=== PATIENT | female | born 1970 | race Two or more races ===

== ENCOUNTER 2022-10-16 19:33 | Inpatient (IN) | payer MEDICAID ==
[~2022-10-16] VITALS: Ht 149.9 cm; Wt 59.1 kg
[2022-10-16 20:45] LABS: COVID19 ANTIGEN SOFIA FIA NEGATIVE (NEGATIVE)
[2022-10-16 20:46] LABS: Rapid Influenza A Negative (Negative); Rapid Influenza B Negative (Negative)
[2022-10-16 22:56] LABS: Basophils # (auto) 0 10 ^3/uL (0-0.2); Basophils % (auto) 0.4 % (0.0-2.0); Eosinophils # (auto) 0.1 10 ^3/uL (0-0.8); Eosinophils % (auto) 0.8 % (0.0-7.0); Hematocrit 29.6 % (36.0-46.0); Hemoglobin 9.8 g/dL (12.2-16.2); Lymphocytes # (auto) 0.7 10 ^3/uL (0.4-5.4); Lymphocytes % (auto) 9.7 % (10.0-50.0); Mean Corpuscular Hgb Conc. 33.3 g/dL (32.0-36.0); Monocytes # (auto) 0.2 10 ^3/uL (0-1.3); Neutrophils # (auto) 6.2 10 ^3/uL (1.6-8.6); Neutrophils % (auto) 86.1 % (37.0-80.0); Nucleated Red Blood Cells % 0.1 %; Red Blood Cells 3.52 10^6/uL (4.0-5.20); Red Cell Distribution Width 14.7 % (11.8-14.3); White Blood Cell 7.1 10^3/uL (4.4-10.8)
[2022-10-16 23:15] LABS: BUN/Creatinine Ratio 18.8 (10.0-20.0); Calcium 8.8 mg/dL (8.5-10.1); Potassium 4.8 mmol/L (3.5-5.1)
[2022-10-16 23:18] LABS: Bilirubin, Total 0.6 mg/dL (0.2-1.0); Total Protein 8.3 g/dL (6.4-8.2)
[2022-10-17 01:22] LABS: Urine Bacteria MANY /hpf (None Seen); Urine Blood Negative /uL (Negative); Urine Clarity HAZY (Clear); Urine Color Yellow (Yellow); Urine Hyaline Cast FEW /lpf (0 - 2); Urine Protein, UAD 1+ (Negative); Urine Urobilinogen Normal (Negative); Urine WBC 6 /hpf (0 - 5); Urine pH 5.5 (5.0-8.0)
[2022-10-17] MEDS ORDERED: FAMOTIDINE (10MG/ML) 2ML VL IV ONE (02:00)
[2022-10-17] MEDS ORDERED: SODIUM CHLORIDE 0.9% 1,000 ML IV ONE ×2 (02:00→14:45)
[2022-10-17] MEDS ORDERED: ONDANSETRON HCL 4 MG/2 ML VIAL IV ONE (02:00)
[2022-10-17] MEDS ORDERED: HYDROcodone-ACET 5/325MG TAB PO PRN (06:45)
[2022-10-17] MEDS ORDERED: NITROGLYCERIN 0.4 MG SL TAB SL PRN (06:45)
[2022-10-17] MEDS ORDERED: ACETAMINOPHEN 325 MG TAB PO PRN (06:45)
[2022-10-17] MEDS ORDERED: DOCUSATE SOD 100 MG CAP PO PRN (06:45)
[2022-10-17] MEDS ORDERED: DEXTROSE (50%) 50ML SYRG IV PRN (06:45)
[2022-10-17] MEDS ORDERED: SODIUM CHLORIDE 0.9% 1,000 ML IV SCH (06:45)
[2022-10-17] MEDS ORDERED: ONDANSETRON HCL 4 MG/2 ML VIAL IV PRN (06:45)
[2022-10-17] MEDS ORDERED: MORPHINE SULFATE INJ 2 MG/ml SYRG IV PRN (06:45)
[2022-10-17 07:41] LABS: Basophils # (auto) 0 10 ^3/uL (0-0.2); Basophils % (auto) 0.4 % (0.0-2.0); Eosinophils # (auto) 0 10 ^3/uL (0-0.8); Eosinophils % (auto) 0.6 % (0.0-7.0); Hematocrit 27.5 % (36.0-46.0); Hemoglobin 9.1 g/dL (12.2-16.2); Mean Corpuscular Hemoglobin 27.8 pg (28.0-32.0); Mean Corpuscular Hgb Conc. 33.1 g/dL (32.0-36.0); Mean Corpuscular Volume 84.1 fL (80.0-100.0); Monocytes # (auto) 0.6 10 ^3/uL (0-1.3); Monocytes % (auto) 7.7 % (0.0-12.0); Neutrophils % (auto) 78.3 % (37.0-80.0); Nucleated Red Blood Cells % 0.1 %; Red Blood Cells 3.26 10^6/uL (4.0-5.20); Red Cell Distribution Width 14.4 % (11.8-14.3); White Blood Cell 7.6 10^3/uL (4.4-10.8)
[2022-10-17 07:53] LABS: Calcium 8.2 mg/dL (8.5-10.1); Potassium 4.3 mmol/L (3.5-5.1)
[2022-10-17 07:59] LABS: Albumin 2.5 g/dL (3.4-5.0); BUN/Creatinine Ratio 19.1 (10.0-20.0); Bilirubin, Total 0.6 mg/dL (0.2-1.0); Total Protein 7.5 g/dL (6.4-8.2)
[2022-10-17 09:00] VITALS: RESP 16; O2SAT 100
[2022-10-17] MEDS: FAMOTIDINE (10MG/ML) 2ML VL IV SCH ×2 (11:07→23:01)
[2022-10-17 11:30] LABS: INR 1.04 (0.9-1.15); Partial Thromboplastin Time 32.9 SEC (24.5-34.5); Prothrombin Time 10.9 sec (9.3-11.8)
[2022-10-17] MEDS: InsuLIN REG 1unit/0.01ml Soln (100units/ml) SC SCH ×2 (12:00→18:25)
[2022-10-17] MEDS: ACCU-CHEK COMFORT CURVE STRIP VI SCH ×2 (12:23→18:23)
[2022-10-17] MEDS: metroNIDAZOLE 500MG/100ML 100 ML IV SCH ×2 (15:21→23:01)
[2022-10-17] MEDS: SODIUM CHLORIDE 0.9% 1,000 ML IV SCH ×2 (15:22→23:02)
[2022-10-17] MEDS: cefTRIAXone 1GM/50ML D5W 50 ML IV SCH (15:22)
[2022-10-17 18:05] VITALS: RESP 18; O2SAT 98
[2022-10-17 20:00] VITALS: PULSE 79; RESP 17; O2SAT 96
[2022-10-17 22:00] VITALS: BP 111/58; PULSE 79; RESP 17; TEMP 98.2; O2SAT 96
[2022-10-17] MEDS: MORPHINE SULFATE INJ 2 MG/ml SYRG IV PRN (23:45)
[2022-10-18] VITALS (7 sets, daily range): BP systolic 109–141; BP diastolic 52–80; PULSE 80–112; RESP 16–19; TEMP 97.1–100.6; O2SAT 93–100
[2022-10-18] MEDS: ACCU-CHEK COMFORT CURVE STRIP VI SCH ×4 (00:17→17:37)
[2022-10-18] MEDS: metroNIDAZOLE 500MG/100ML 100 ML IV SCH ×4 (00:18→21:21)
[2022-10-18] MEDS: InsuLIN REG 1unit/0.01ml Soln (100units/ml) SC SCH ×4 (06:00→18:36)
[2022-10-18] MEDS ORDERED: ceFAZolin 1GM/50ML 100 ML IV ONE (06:48)
[2022-10-18 07:53] LABS: Basophils # (auto) 0 10 ^3/uL (0-0.2); Basophils % (auto) 0.3 % (0.0-2.0); Eosinophils # (auto) 0 10 ^3/uL (0-0.8); Eosinophils % (auto) 0.4 % (0.0-7.0); Hematocrit 27.8 % (36.0-46.0); Hemoglobin 9.1 g/dL (12.2-16.2); Lymphocytes # (auto) 1.2 10 ^3/uL (0.4-5.4); Mean Corpuscular Hemoglobin 27.9 pg (28.0-32.0); Mean Corpuscular Hgb Conc. 32.8 g/dL (32.0-36.0); Mean Corpuscular Volume 84.9 fL (80.0-100.0); Monocytes # (auto) 0.3 10 ^3/uL (0-1.3); Monocytes % (auto) 3.2 % (0.0-12.0); Neutrophils # (auto) 8.3 10 ^3/uL (1.6-8.6); Neutrophils % (auto) 84.1 % (37.0-80.0); Red Blood Cells 3.27 10^6/uL (4.0-5.20); Red Cell Distribution Width 14.2 % (11.8-14.3); White Blood Cell 9.9 10^3/uL (4.4-10.8)
[2022-10-18] MEDS ORDERED: MIDAZOLAM HCL 2MG/2ML 2ml VIAL (1mg/ml) ONE (08:00)
[2022-10-18] MEDS ORDERED: fentaNYL CITRATE 100 MCG/2 ML VL ONE (08:00)
[2022-10-18] MEDS ORDERED: MEPERIDINE HCL (25 MG/ML) 1ML VIAL ONE (08:01)
[2022-10-18] MEDS ORDERED: BUPIVACAINE W/ EPINEPH 0.5% INJ 50ML MDV IJ ONE (08:14)
[2022-10-18] MEDS ORDERED: LIDOCAINE 1% HCL (LOCAL ANESTH.) INJ 20ML MDV ONE (08:15)
[2022-10-18 08:17] LABS: Potassium 3.9 mmol/L (3.5-5.1)
[2022-10-18 08:25] LABS: Albumin 2.7 g/dL (3.4-5.0); BUN/Creatinine Ratio 15.3 (10.0-20.0); Bilirubin, Total 0.7 mg/dL (0.2-1.0); Calcium 8.4 mg/dL (8.5-10.1); Total Protein 7.8 g/dL (6.4-8.2)
[2022-10-18] MEDS ORDERED: PROPOFOL 10 MG/ML 20 ML IV ONE (08:53)
[2022-10-18] MEDS ORDERED: ONDANSETRON HCL 4 MG/2 ML VIAL ONE (08:53)
[2022-10-18] MEDS ORDERED: DexAMETHasone SOD PHOS 10MG/1ML VIAL INJ ONE (08:53)
[2022-10-18] MEDS ORDERED: hydrALAZINE HCL 20 MG/ML VL IV PRN (09:00)
[2022-10-18] MEDS ORDERED: LABETALOL HCL 5 MG/ML 4ML SYRINGE IV PRN (09:00)
[2022-10-18] MEDS ORDERED: MORPHINE SULFATE 4 MG/ML SYR/VIAL IV PRN (09:00)
[2022-10-18] MEDS ORDERED: MIDAZOLAM HCL 2MG/2ML 2ml VIAL (1mg/ml) IV PRN (09:00)
[2022-10-18] MEDS ORDERED: HYDROmorphone HCL 2 MG/ML VL/or syr IV PRN (09:00)
[2022-10-18] MEDS ORDERED: ONDANSETRON HCL 4 MG/2 ML VIAL IV PRN (09:00)
[2022-10-18] MEDS ORDERED: ePHEDrine SULFATE 50 MG/ML AMP IV PRN (09:00)
[2022-10-18] MEDS ORDERED: SUGAMMADEX 200mg/2ml Vial (100MG/ML) IV ONE (09:24)
[2022-10-18] MEDS ORDERED: LIDOCAINE HCL 1%(LOCAL ANESTH.) INJ 50ML MDV IJ ONE (09:40)
[2022-10-18] MEDS: FAMOTIDINE (10MG/ML) 2ML VL IV SCH ×2 (09:43→21:21)
[2022-10-18] MEDS: SODIUM CHLORIDE 0.9% 1,000 ML IV SCH ×2 (11:04→19:00)
[2022-10-18] MEDS: cefTRIAXone 1GM/50ML D5W 50 ML IV SCH (11:04)
[2022-10-18] MEDS ORDERED: METR-344 PO (11:40)
[2022-10-18 11:43] LABS: Hematocrit 27.1 % (36.0-46.0); Hemoglobin 8.8 g/dL (12.2-16.2); Mean Corpuscular Hemoglobin 27.9 pg (28.0-32.0); Mean Corpuscular Hgb Conc. 32.6 g/dL (32.0-36.0); Mean Corpuscular Volume 85.7 fL (80.0-100.0); Red Blood Cells 3.16 10^6/uL (4.0-5.20); Red Cell Distribution Width 14.9 % (11.8-14.3); White Blood Cell 10.7 10^3/uL (4.4-10.8)
[2022-10-18 12:04] LABS: Basophils % (manual) 0 (0.0-2.0); Blast Cells 0; Eosinophils % (manual) 0 (0-7); Metamyelocytes % 0; Myelocytes % 0; Promyelocytes % 0; Reactive Lymphocytes 0
[2022-10-18 16:14] LABS: Anisocytosis Slight; Band Neutrophils % (manual) 8; Lymphocytes % (manual) 4 (10.0-50.0); Monocytes % (manual) 3 (0-12); Platelet Estimate Adequate
[2022-10-18] MEDS ORDERED: ROCURONIUM 10MG/ML 10ML VIAL IV ONE (17:21)
[2022-10-18] MEDS: MORPHINE SULFATE INJ 2 MG/ml SYRG IV PRN (21:21)
[2022-10-19] MEDS: ACCU-CHEK COMFORT CURVE STRIP VI SCH ×3 (00:02→12:26)
[2022-10-19] MEDS: InsuLIN REG 1unit/0.01ml Soln (100units/ml) SC SCH ×3 (00:04→12:00)
[2022-10-19] MEDS ORDERED: TEMAZEPAM 15 MG CAP PO PRN ×2 (00:15→01:45)
[2022-10-19 05:00] VITALS: BP 137/74; PULSE 90; RESP 16; TEMP 97.7; O2SAT 98
[2022-10-19] MEDS: SODIUM CHLORIDE 0.9% 1,000 ML IV SCH ×2 (06:27→07:27)
[2022-10-19] MEDS: metroNIDAZOLE 500MG/100ML 100 ML IV SCH ×2 (06:27→14:56)
[2022-10-19 07:09] LABS: Basophils # (auto) 0 10 ^3/uL (0-0.2); Eosinophils # (auto) 0 10 ^3/uL (0-0.8); Lymphocytes # (auto) 1.1 10 ^3/uL (0.4-5.4); Red Cell Distribution Width 14.7 % (11.8-14.3); White Blood Cell 13.1 10^3/uL (4.4-10.8)
[2022-10-19 07:12] LABS: Hemoglobin 8.9 g/dL (12.2-16.2); Lymphocytes % (auto) 8.4 % (10.0-50.0); Mean Corpuscular Hemoglobin 27.3 pg (28.0-32.0); Mean Corpuscular Hgb Conc. 32.8 g/dL (32.0-36.0); Monocytes # (auto) 0.8 10 ^3/uL (0-1.3); Monocytes % (auto) 6.2 % (0.0-12.0); Neutrophils # (auto) 11.2 10 ^3/uL (1.6-8.6); Neutrophils % (auto) 85.4 % (37.0-80.0); Red Blood Cells 3.25 10^6/uL (4.0-5.20)
[2022-10-19 07:22] LABS: Calcium 8.6 mg/dL (8.5-10.1); Potassium 4.2 mmol/L (3.5-5.1)
[2022-10-19 07:27] LABS: BUN/Creatinine Ratio 21.5 (10.0-20.0); Bilirubin, Total 0.7 mg/dL (0.2-1.0)
[2022-10-19 08:30] VITALS: O2SAT 97
[2022-10-19 09:00] VITALS: BP 131/76; PULSE 80; RESP 16; TEMP 98; O2SAT 98
[2022-10-19] MEDS: FAMOTIDINE (10MG/ML) 2ML VL IV SCH (10:53)
[2022-10-19] MEDS: cefTRIAXone 1GM/50ML D5W 50 ML IV SCH (10:53)
[2022-10-19 13:00] VITALS: BP 114/70; PULSE 81; RESP 14; TEMP 98.1; O2SAT 100
== END 2022-10-19 17:22 | disposition home or self-care (01) | DRG 263 ==
LOC: ER 19:33 → OVERFLOW 10-17 06:41 → WEST WING 10-17 17:28
PROVIDERS: ADMIT Internal Medicine Pulmonary Disease; ATTEND Internal Medicine
PROC: 0FT44ZZ Resection of Gallbladder, Percutaneous Endoscopic Approach (ICD-10-PCS; principal; 2022-10-18 08:20)
DX: K80.00 Calculus of gallbladder with acute cholecystitis without obstruction (principal); E44.1 Mild protein-calorie malnutrition; D64.9 Anemia, unspecified; E11.65 Type 2 diabetes mellitus with hyperglycemia; I10 Essential (primary) hypertension; Z20.822 Contact with and (suspected) exposure to COVID-19; Z68.26 Body mass index [BMI] 26.0-26.9, adult
CPT/HCPCS: 36415; 71045; 74176; 76705; 80048; 80053; 81001; 81025; 82247; 82962; 83036; 85007; 85025; 85027; 85610; 85730; 86850; 86900; 86901; 87070; 87075; 87077; 87186; 87205; 87426; 87804; 93306; 96361; 96374; 96375; G0378; J0690; J0696; J1100; J1815; J2001; J2250; J2405; J2704; J3490

== ENCOUNTER 2022-10-20 14:57 | Inpatient (IN) | payer MEDICAID ==
[~2022-10-20] VITALS: Ht 149.9 cm; Wt 57.4 kg
[~2022-10-20 14:57] MED LIST: METR-344 PO
[2022-10-20 15:45] LABS: Basophils # (auto) 0.1 10 ^3/uL (0-0.2); Basophils % (auto) 0.5 % (0.0-2.0); Eosinophils # (auto) 0 10 ^3/uL (0-0.8); Eosinophils % (auto) 0.1 % (0.0-7.0); Hemoglobin 10.1 g/dL (12.2-16.2); Lymphocytes # (auto) 1.8 10 ^3/uL (0.4-5.4); Lymphocytes % (auto) 15.4 % (10.0-50.0); Mean Corpuscular Hemoglobin 27.1 pg (28.0-32.0); Mean Corpuscular Hgb Conc. 32.4 g/dL (32.0-36.0); Mean Corpuscular Volume 83.6 fL (80.0-100.0); Monocytes # (auto) 0.8 10 ^3/uL (0-1.3); Monocytes % (auto) 7.3 % (0.0-12.0); Neutrophils # (auto) 8.8 10 ^3/uL (1.6-8.6); Neutrophils % (auto) 76.7 % (37.0-80.0); Nucleated Red Blood Cells % 0.1 %; Red Blood Cells 3.71 10^6/uL (4.0-5.20); Red Cell Distribution Width 14.9 % (11.8-14.3); White Blood Cell 11.5 10^3/uL (4.4-10.8)
[2022-10-20] MEDS ORDERED: IOHEXOL 300 MG/ML 100ML BOTTLE IJ ONE (15:51)
[2022-10-20 15:54] LABS: Urine Bacteria NONE SEEN /hpf (None Seen); Urine Blood Negative /uL (Negative); Urine Clarity Clear (Clear); Urine Color Yellow (Yellow); Urine Hyaline Cast FEW /lpf (0 - 2); Urine Protein, UAD 1+ (Negative); Urine Specific Gravity 1.018 (1.001-1.035); Urine Urobilinogen Normal (Negative); Urine WBC 2 /hpf (0 - 5); Urine pH 5.5 (5.0-8.0)
[2022-10-20] MEDS ORDERED: ONDANSETRON HCL 4 MG/2 ML VIAL IV ONE (16:00)
[2022-10-20] MEDS ORDERED: SODIUM CHLORIDE 0.9% 1,000 ML IVB ONE (16:00)
[2022-10-20 16:05] LABS: Albumin 2.7 g/dL (3.4-5.0); Calcium 8.5 mg/dL (8.5-10.1); Potassium 3.2 mmol/L (3.5-5.1)
[2022-10-20 16:22] LABS: BUN/Creatinine Ratio 20.5 (10.0-20.0); Bilirubin, Total 0.4 mg/dL (0.2-1.0); Total Protein 7.8 g/dL (6.4-8.2)
[2022-10-20 16:40] LABS: Magnesium 1.9 mg/dL (1.6-2.6)
[2022-10-20] MEDS ORDERED: DEXTROSE (50%) 50ML SYRG IV PRN (18:30)
[2022-10-20] MEDS ORDERED: ACETAMINOPHEN 325 MG TAB PO PRN (18:30)
[2022-10-20] MEDS ORDERED: DOCUSATE SOD 100 MG CAP PO PRN (18:30)
[2022-10-20] MEDS ORDERED: SODIUM CHLORIDE 0.9% 1,000 ML IV SCH (18:30)
[2022-10-20] MEDS ORDERED: MORPHINE SULFATE INJ 2 MG/ml SYRG IV PRN (18:30)
[2022-10-20] MEDS ORDERED: POTASSIUM EFFERVESENT TAB 25 MEQ PO ONE (19:00)
[2022-10-20] MEDS: SODIUM CHLORIDE 0.9% 1,000 ML IV SCH (19:39)
[2022-10-20] MEDS: InsuLIN REG 1unit/0.01ml Soln (100units/ml) SC SCH (22:00)
[2022-10-20] MEDS: metroNIDAZOLE 500MG/100ML 100 ML IV SCH (22:06)
[2022-10-20] MEDS: ACCU-CHEK COMFORT CURVE STRIP VI SCH (22:08)
[2022-10-20 22:10] VITALS: PULSE 91; RESP 17; O2SAT 97
[2022-10-20 23:52] VITALS: BP 142/79; PULSE 94; RESP 18; O2SAT 99
[2022-10-20 23:53] VITALS: BP 146/79; PULSE 99; RESP 18; TEMP 98.2; O2SAT 94
[2022-10-21] MEDS: HYDROcodone-ACET 5/325MG TAB PO PRN (00:14)
[2022-10-21] MEDS: CEFEPIME 1GM/ 50ML 50 ML IV SCH ×3 (00:15→22:30)
[2022-10-21] MEDS: SODIUM CHLORIDE 0.9% 1,000 ML IV SCH ×6 (00:16→16:04)
[2022-10-21] MEDS: ONDANSETRON HCL 4 MG/2 ML VIAL IV PRN ×2 (03:49→12:09)
[2022-10-21] MEDS: metroNIDAZOLE 500MG/100ML 100 ML IV SCH ×3 (05:21→21:10)
[2022-10-21] MEDS: ACCU-CHEK COMFORT CURVE STRIP VI SCH ×4 (06:03→21:11)
[2022-10-21] MEDS: InsuLIN REG 1unit/0.01ml Soln (100units/ml) SC SCH ×4 (06:03→21:11)
[2022-10-21 06:50] LABS: Albumin 2.4 g/dL (3.4-5.0); Calcium 7.9 mg/dL (8.5-10.1); Potassium 3.2 mmol/L (3.5-5.1)
[2022-10-21 06:56] LABS: BUN/Creatinine Ratio 23.6 (10.0-20.0); Bilirubin, Total 0.4 mg/dL (0.2-1.0); Total Protein 6.8 g/dL (6.4-8.2)
[2022-10-21 07:16] LABS: Basophils # (auto) 0 10 ^3/uL (0-0.2); Basophils % (auto) 0.2 % (0.0-2.0); Eosinophils # (auto) 0 10 ^3/uL (0-0.8); Eosinophils % (auto) 0.3 % (0.0-7.0); Hematocrit 27.6 % (36.0-46.0); Lymphocytes # (auto) 1.8 10 ^3/uL (0.4-5.4); Lymphocytes % (auto) 13.4 % (10.0-50.0); Mean Corpuscular Hemoglobin 27.4 pg (28.0-32.0); Mean Corpuscular Hgb Conc. 32.7 g/dL (32.0-36.0); Mean Corpuscular Volume 83.9 fL (80.0-100.0); Monocytes % (auto) 7.1 % (0.0-12.0); Neutrophils # (auto) 10.7 10 ^3/uL (1.6-8.6); Red Blood Cells 3.29 10^6/uL (4.0-5.20); Red Cell Distribution Width 14.8 % (11.8-14.3); White Blood Cell 13.6 10^3/uL (4.4-10.8)
[2022-10-21 07:30] VITALS: PULSE 80; RESP 18; O2SAT 97
[2022-10-21 09:26] VITALS: BP 111/64; PULSE 85; RESP 16; TEMP 97.6; O2SAT 98
[2022-10-21] MEDS ORDERED: POTASSIUM CHL 20MEQ/100ML 100 ML IV ONE (10:45)
[2022-10-21 13:38] VITALS: BP 141/83; PULSE 89; RESP 17; TEMP 98.7; O2SAT 98
[2022-10-21 16:37] VITALS: BP 141/78; PULSE 89; RESP 14; TEMP 98.1; O2SAT 100
[2022-10-21 20:00] VITALS: BP 127/68; PULSE 88; RESP 18; TEMP 98.5; O2SAT 97
[2022-10-21 22:00] VITALS: BP 127/68; PULSE 88; RESP 18; TEMP 98.5; O2SAT 97
[2022-10-22] VITALS (7 sets, daily range): BP systolic 108–140; BP diastolic 66–75; PULSE 85–92; RESP 17–18; TEMP 97.4–99.4; O2SAT 95–98
[2022-10-22] MEDS: ONDANSETRON HCL 4 MG/2 ML VIAL IV PRN ×3 (00:22→16:20)
[2022-10-22] MEDS: SODIUM CHLORIDE 0.9% 1,000 ML IV SCH ×5 (01:00→21:00)
[2022-10-22] MEDS: metroNIDAZOLE 500MG/100ML 100 ML IV SCH (05:05)
[2022-10-22 05:57] LABS: Basophils # (auto) 0 10 ^3/uL (0-0.2); Basophils % (auto) 0.2 % (0.0-2.0); Eosinophils # (auto) 0.1 10 ^3/uL (0-0.8); Eosinophils % (auto) 0.4 % (0.0-7.0); Hematocrit 27.8 % (36.0-46.0); Hemoglobin 9.2 g/dL (12.2-16.2); Lymphocytes # (auto) 1.7 10 ^3/uL (0.4-5.4); Lymphocytes % (auto) 10.7 % (10.0-50.0); Mean Corpuscular Hemoglobin 27.6 pg (28.0-32.0); Mean Corpuscular Hgb Conc. 32.9 g/dL (32.0-36.0); Mean Corpuscular Volume 83.9 fL (80.0-100.0); Monocytes # (auto) 0.9 10 ^3/uL (0-1.3); Monocytes % (auto) 5.6 % (0.0-12.0); Neutrophils # (auto) 12.9 10 ^3/uL (1.6-8.6); Neutrophils % (auto) 83.1 % (37.0-80.0); Red Blood Cells 3.32 10^6/uL (4.0-5.20); Red Cell Distribution Width 14.5 % (11.8-14.3); White Blood Cell 15.5 10^3/uL (4.4-10.8)
[2022-10-22] MEDS: ACCU-CHEK COMFORT CURVE STRIP VI SCH ×4 (06:08→21:15)
[2022-10-22 06:14] LABS: Albumin 2.5 g/dL (3.4-5.0); Calcium 7.9 mg/dL (8.5-10.1); Potassium 3.3 mmol/L (3.5-5.1)
[2022-10-22] MEDS: InsuLIN REG 1unit/0.01ml Soln (100units/ml) SC SCH ×4 (06:14→21:20)
[2022-10-22 06:19] LABS: BUN/Creatinine Ratio 17.7 (10.0-20.0); Bilirubin, Total 0.5 mg/dL (0.2-1.0); Total Protein 6.8 g/dL (6.4-8.2)
[2022-10-22] MEDS: CEFEPIME 1GM/ 50ML 50 ML IV SCH ×2 (09:46→21:15)
[2022-10-22] MEDS: metroNIDAZOLE 500 MG TAB PO SCH ×2 (11:46→18:41)
[2022-10-22] MEDS ORDERED: POTASSIUM CHL 20MEQ/100ML 100 ML IV ONE (15:45)
[2022-10-23] VITALS (7 sets, daily range): BP systolic 110–129; BP diastolic 63–79; PULSE 85–94; RESP 16–20; TEMP 36.5; O2SAT 96–98
[2022-10-23] MEDS: metroNIDAZOLE 500 MG TAB PO SCH ×3 (00:18→12:12)
[2022-10-23] MEDS: ONDANSETRON HCL 4 MG/2 ML VIAL IV PRN ×2 (00:22→05:26)
[2022-10-23] MEDS: SODIUM CHLORIDE 0.9% 1,000 ML IV SCH ×5 (02:00→22:03)
[2022-10-23] MEDS: ACCU-CHEK COMFORT CURVE STRIP VI SCH ×4 (06:02→22:02)
[2022-10-23] MEDS: InsuLIN REG 1unit/0.01ml Soln (100units/ml) SC SCH ×4 (06:03→22:00)
[2022-10-23 06:29] LABS: Albumin 2.6 g/dL (3.4-5.0); Calcium 8.4 mg/dL (8.5-10.1); Potassium 3.2 mmol/L (3.5-5.1)
[2022-10-23 06:35] LABS: BUN/Creatinine Ratio 21.1 (10.0-20.0); Bilirubin, Total 0.4 mg/dL (0.2-1.0); Total Protein 7.4 g/dL (6.4-8.2)
[2022-10-23 06:41] LABS: Basophils # (auto) 0 10 ^3/uL (0-0.2); Basophils % (auto) 0.1 % (0.0-2.0); Eosinophils # (auto) 0 10 ^3/uL (0-0.8); Eosinophils % (auto) 0.2 % (0.0-7.0); Lymphocytes # (auto) 1.6 10 ^3/uL (0.4-5.4); Monocytes # (auto) 0.8 10 ^3/uL (0-1.3)
[2022-10-23 06:45] LABS: Hematocrit 28.9 % (36.0-46.0); Hemoglobin 9.8 g/dL (12.2-16.2); Lymphocytes % (auto) 11.4 % (10.0-50.0); Mean Corpuscular Hgb Conc. 33.7 g/dL (32.0-36.0); Monocytes % (auto) 5.4 % (0.0-12.0); Neutrophils # (auto) 11.7 10 ^3/uL (1.6-8.6); Neutrophils % (auto) 82.9 % (37.0-80.0); Red Blood Cells 3.49 10^6/uL (4.0-5.20); Red Cell Distribution Width 14.6 % (11.8-14.3); White Blood Cell 14.1 10^3/uL (4.4-10.8)
[2022-10-23] MEDS ORDERED: MAALOX PLUS or MAALOX 30 ML PO PRN (07:45)
[2022-10-23] MEDS ORDERED: POTASSIUM EFFERVESENT TAB 25 MEQ PO ONE ×2 (09:00→09:15)
[2022-10-23] MEDS: CEFEPIME 1GM/ 50ML 50 ML IV SCH (09:41)
[2022-10-23] MEDS ORDERED: PANTOPRAZOLE 40 MG TAB PO ONE (10:15)
[2022-10-23] MEDS ORDERED: ZOLPIDEM TARTRATE 5 MG TAB PO PRN (10:15)
[2022-10-23] MEDS: METOCLOPRAMIDE HCL 5MG/ml INJ 2ml VIAL IV SCH ×2 (15:58→22:02)
[2022-10-23] MEDS: PIPERACILLIN-TAZOB 3.375GM 100 ML IV SCH ×2 (15:59→22:02)
[2022-10-23] MEDS: SUCRALFATE 1 GM/10 ML ORAL SUSP PO SCH ×2 (17:29→22:02)
[2022-10-23] MEDS: PANTOPRAZOLE 40 MG/10 ML VIAL INJ IV SCH (22:02)
[2022-10-24] VITALS (7 sets, daily range): BP systolic 107–133; BP diastolic 67–79; PULSE 83–90; RESP 14–18; TEMP 36.5; O2SAT 93–99
[2022-10-24] MEDS: SODIUM CHLORIDE 0.9% 1,000 ML IV SCH ×5 (03:05→22:46)
[2022-10-24] MEDS: HYDROcodone-ACET 5/325MG TAB PO PRN (03:13)
[2022-10-24] MEDS: ONDANSETRON HCL 4 MG/2 ML VIAL IV PRN (04:56)
[2022-10-24 05:57] LABS: Basophils # (auto) 0 10 ^3/uL (0-0.2); Hematocrit 31.2 % (36.0-46.0); Hemoglobin 10.4 g/dL (12.2-16.2); Lymphocytes # (auto) 1.7 10 ^3/uL (0.4-5.4); Nucleated Red Blood Cells % 0.1 %; Red Blood Cells 3.76 10^6/uL (4.0-5.20); Red Cell Distribution Width 14.2 % (11.8-14.3)
[2022-10-24 06:00] LABS: Basophils % (auto) 0.3 % (0.0-2.0); Eosinophils # (auto) 0.1 10 ^3/uL (0-0.8); Eosinophils % (auto) 0.6 % (0.0-7.0); Lymphocytes % (auto) 16.5 % (10.0-50.0); Mean Corpuscular Hemoglobin 27.6 pg (28.0-32.0); Mean Corpuscular Hgb Conc. 33.2 g/dL (32.0-36.0); Monocytes # (auto) 0.7 10 ^3/uL (0-1.3); Monocytes % (auto) 6.5 % (0.0-12.0); Neutrophils % (auto) 76.1 % (37.0-80.0); White Blood Cell 10.5 10^3/uL (4.4-10.8)
[2022-10-24] MEDS: METOCLOPRAMIDE HCL 5MG/ml INJ 2ml VIAL IV SCH ×3 (06:00→22:00)
[2022-10-24] MEDS: PIPERACILLIN-TAZOB 3.375GM 100 ML IV SCH ×3 (06:00→22:00)
[2022-10-24 06:37] LABS: Potassium 3.6 mmol/L (3.5-5.1)
[2022-10-24 06:49] LABS: Albumin 2.8 g/dL (3.4-5.0); BUN/Creatinine Ratio 14.9 (10.0-20.0); Bilirubin, Total 0.5 mg/dL (0.2-1.0); Calcium 8.2 mg/dL (8.5-10.1)
[2022-10-24] MEDS: InsuLIN REG 1unit/0.01ml Soln (100units/ml) SC SCH ×4 (07:00→22:00)
[2022-10-24] MEDS: ACCU-CHEK COMFORT CURVE STRIP VI SCH ×4 (07:23→22:00)
[2022-10-24] MEDS: SUCRALFATE 1 GM/10 ML ORAL SUSP PO SCH ×4 (07:23→22:00)
[2022-10-24] MEDS: PANTOPRAZOLE 40 MG/10 ML VIAL INJ IV SCH ×2 (10:00→22:00)
[2022-10-24] MEDS: PANTOPRAZOLE 40 MG TAB PO SCH (10:06)
[2022-10-25] MEDS: SODIUM CHLORIDE 0.9% 1,000 ML IV SCH (04:00)
[2022-10-25 05:00] VITALS: BP 144/80; PULSE 80; RESP 18; TEMP 98.5; O2SAT 98
[2022-10-25] MEDS: METOCLOPRAMIDE HCL 5MG/ml INJ 2ml VIAL IV SCH ×2 (06:32→13:40)
[2022-10-25] MEDS: SUCRALFATE 1 GM/10 ML ORAL SUSP PO SCH ×2 (06:32→11:18)
[2022-10-25] MEDS: ACCU-CHEK COMFORT CURVE STRIP VI SCH ×2 (06:32→11:18)
[2022-10-25] MEDS: PIPERACILLIN-TAZOB 3.375GM 100 ML IV SCH ×2 (06:32→13:40)
[2022-10-25] MEDS: InsuLIN REG 1unit/0.01ml Soln (100units/ml) SC SCH ×2 (06:39→12:06)
[2022-10-25 07:14] LABS: Basophils # (auto) 0.1 10 ^3/uL (0-0.2); Eosinophils # (auto) 0.1 10 ^3/uL (0-0.8); Eosinophils % (auto) 1.1 % (0.0-7.0); Lymphocytes # (auto) 1.7 10 ^3/uL (0.4-5.4); Neutrophils # (auto) 6.6 10 ^3/uL (1.6-8.6); White Blood Cell 9.1 10^3/uL (4.4-10.8)
[2022-10-25 07:16] LABS: Basophils % (auto) 0.9 % (0.0-2.0); Hematocrit 30.1 % (36.0-46.0); Hemoglobin 9.7 g/dL (12.2-16.2); Lymphocytes % (auto) 18.9 % (10.0-50.0); Mean Corpuscular Hemoglobin 27.3 pg (28.0-32.0); Mean Corpuscular Hgb Conc. 32.4 g/dL (32.0-36.0); Mean Corpuscular Volume 84.3 fL (80.0-100.0); Monocytes # (auto) 0.7 10 ^3/uL (0-1.3); Monocytes % (auto) 7.3 % (0.0-12.0); Neutrophils % (auto) 71.8 % (37.0-80.0); Red Blood Cells 3.56 10^6/uL (4.0-5.20); Red Cell Distribution Width 14.5 % (11.8-14.3)
[2022-10-25 07:21] LABS: Potassium 3.3 mmol/L (3.5-5.1)
[2022-10-25 07:30] LABS: Albumin 2.6 g/dL (3.4-5.0); BUN/Creatinine Ratio 7.4 (10.0-20.0); Bilirubin, Total 0.3 mg/dL (0.2-1.0); Calcium 8.2 mg/dL (8.5-10.1); Total Protein 7.2 g/dL (6.4-8.2)
[2022-10-25 08:00] VITALS: PULSE 83; RESP 20; TEMP 36.5; O2SAT 96
[2022-10-25] MEDS ORDERED: POTASSIUM EFFERVESENT TAB 25 MEQ PO ONE (08:45)
[2022-10-25] MEDS ORDERED: SODIUM CHLORIDE 0.9% 1,000 ML IV SCH (08:45)
[2022-10-25 09:02] VITALS: BP 104/60; PULSE 81; RESP 14; TEMP 97.9; O2SAT 96
[2022-10-25] MEDS ORDERED: PANT40TA2 PO (09:24)
[2022-10-25] MEDS ORDERED: ZOFR4T PO (09:24)
[2022-10-25] MEDS: PANTOPRAZOLE 40 MG TAB PO SCH (10:37)
[2022-10-25 13:00] VITALS: BP 156/85; PULSE 91; RESP 16; TEMP 98.2; O2SAT 99
[2022-10-25 16:41] VITALS: BP 100/62; PULSE 87; RESP 18; TEMP 98.3; O2SAT 98
[2022-10-25 17:00] VITALS: BP 99/62; PULSE 87; RESP 14; TEMP 98.3; O2SAT 98
== END 2022-10-25 18:00 | disposition home or self-care (01) | DRG 720 ==
LOC: ER 14:57 → OVERFLOW 18:40 → EAST 22:16
PROVIDERS: ADMIT Internal Medicine Pulmonary Disease; ATTEND Internal Medicine
DX: A41.9 Sepsis, unspecified organism (principal); N17.0 Acute kidney failure with tubular necrosis; K85.90 Acute pancreatitis without necrosis or infection, unspecified; E44.1 Mild protein-calorie malnutrition; D64.9 Anemia, unspecified; D72.829 Elevated white blood cell count, unspecified; E11.65 Type 2 diabetes mellitus with hyperglycemia; E86.0 Dehydration; N30.00 Acute cystitis without hematuria; E87.6 Hypokalemia; K21.9 Gastro-esophageal reflux disease without esophagitis; G47.00 Insomnia, unspecified; I10 Essential (primary) hypertension; Z90.49 Acquired absence of other specified parts of digestive tract; Z83.3 Family history of diabetes mellitus; Z87.442 Personal history of urinary calculi; Z68.25 Body mass index [BMI] 25.0-25.9, adult
CPT/HCPCS: 36415; 71045; 74177; 78226; 80053; 81001; 82150; 82962; 83690; 83735; 85025; 87040; 87086; 87205; 96361; 96365; 96375; C9113; G0378; J1815; J2405; J2543; J3480; J3490

== ENCOUNTER 2022-10-31 18:30 | Inpatient (IN) | payer MEDICAID ==
[~2022-10-31] VITALS: Ht 132.1 cm; Wt 56.1 kg
[~2022-10-31 18:30] MED LIST changes: +PANT40TA2 PO; +ZOFR4T PO
[2022-10-31 19:28] VITALS: PULSE 92; RESP 15; O2SAT 98
[2022-10-31] MEDS ORDERED: SODIUM CHLORIDE 0.9% 500 ML IVB ONE (19:30)
[2022-10-31 19:48] LABS: Basophils # (auto) 0.1 10 ^3/uL (0-0.2); Eosinophils # (auto) 0.1 10 ^3/uL (0-0.8); Hematocrit 26.6 % (36.0-46.0); Monocytes # (auto) 0.9 10 ^3/uL (0-1.3); Neutrophils % (auto) 74.2 % (37.0-80.0); Nucleated Red Blood Cells % 0.1 %; Red Blood Cells 3.18 10^6/uL (4.0-5.20)
[2022-10-31 19:49] LABS: Basophils % (auto) 1.1 % (0.0-2.0); Eosinophils % (auto) 0.5 % (0.0-7.0); Hemoglobin 8.6 g/dL (12.2-16.2); Lymphocytes # (auto) 2.3 10 ^3/uL (0.4-5.4); Lymphocytes % (auto) 17.2 % (10.0-50.0); Mean Corpuscular Hemoglobin 27.1 pg (28.0-32.0); Mean Corpuscular Hgb Conc. 32.4 g/dL (32.0-36.0); Mean Corpuscular Volume 83.7 fL (80.0-100.0); Neutrophils # (auto) 9.7 10 ^3/uL (1.6-8.6); Red Cell Distribution Width 14.4 % (11.8-14.3); White Blood Cell 13.1 10^3/uL (4.4-10.8)
[2022-10-31 20:05] LABS: Albumin 2.5 g/dL (3.4-5.0); Calcium 7.7 mg/dL (8.5-10.1); Magnesium 1.8 mg/dL (1.6-2.6); Potassium 3.6 mmol/L (3.5-5.1)
[2022-10-31 20:15] LABS: Bilirubin, Total 0.3 mg/dL (0.2-1.0); Total Protein 6.6 g/dL (6.4-8.2)
[2022-10-31] MEDS ORDERED: NITROGLYCERIN 0.4 MG SL TAB SL PRN (21:00)
[2022-10-31] MEDS ORDERED: ONDANSETRON HCL 4 MG/2 ML VIAL IV PRN (21:00)
[2022-10-31] MEDS ORDERED: DEXTROSE (50%) 50ML SYRG IV PRN (21:00)
[2022-10-31] MEDS ORDERED: ALBUMIN 25% 100 ML IV ONE (21:00)
[2022-10-31] MEDS ORDERED: levoFLOXacin 500MG 100 ML IV ONE (21:00)
[2022-10-31] MEDS ORDERED: cefTRIAXone 1GM/50ML D5W 50 ML IV ONE (21:00)
[2022-10-31] MEDS ORDERED: MORPHINE SULFATE INJ 2 MG/ml SYRG IV PRN (21:00)
[2022-10-31] MEDS ORDERED: SODIUM CHLORIDE 0.9% 1,000 ML IV ONE (21:00)
[2022-10-31] MEDS ORDERED: DOCUSATE SOD 100 MG CAP PO PRN (21:00)
[2022-10-31 21:18] LABS: Urine Bacteria FEW /hpf (None Seen); Urine Blood Negative /uL (Negative); Urine Clarity Clear (Clear); Urine Color Colorless (Yellow); Urine Hyaline Cast FEW /lpf (0 - 2); Urine Protein, UAD Negative (Negative); Urine Specific Gravity 1.005 (1.001-1.035); Urine Urobilinogen Normal (Negative); Urine WBC 1 /hpf (0 - 5)
[2022-10-31] MEDS: FAMOTIDINE (10MG/ML) 2ML VL IV SCH (22:32)
[2022-10-31] MEDS: InsuLIN REG 1unit/0.01ml Soln (100units/ml) SC SCH (22:35)
[2022-10-31] MEDS: ACCU-CHEK COMFORT CURVE STRIP VI SCH (22:35)
[2022-11-01] MEDS: SODIUM CHLORIDE 0.9% 1,000 ML IV SCH ×2 (03:27→15:12)
[2022-11-01] MEDS: HYDROcodone-ACET 5/325MG TAB PO PRN (03:36)
[2022-11-01] MEDS: InsuLIN REG 1unit/0.01ml Soln (100units/ml) SC SCH ×3 (06:45→18:08)
[2022-11-01] MEDS: ACCU-CHEK COMFORT CURVE STRIP VI SCH ×4 (06:45→22:00)
[2022-11-01 07:34] LABS: Albumin 3.1 g/dL (3.4-5.0); Calcium 8.2 mg/dL (8.5-10.1); Potassium 3.8 mmol/L (3.5-5.1)
[2022-11-01 07:38] LABS: BUN/Creatinine Ratio 18.6 (10.0-20.0); Bilirubin, Total 0.3 mg/dL (0.2-1.0)
[2022-11-01 07:41] LABS: Basophils # (auto) 0.1 10 ^3/uL (0-0.2); Eosinophils # (auto) 0.1 10 ^3/uL (0-0.8); Hematocrit 25.6 % (36.0-46.0); Hemoglobin 8.5 g/dL (12.2-16.2); Mean Corpuscular Hemoglobin 27.6 pg (28.0-32.0); Monocytes # (auto) 0.7 10 ^3/uL (0-1.3); Nucleated Red Blood Cells % 0.1 %
[2022-11-01 07:44] LABS: Basophils % (auto) 0.6 % (0.0-2.0); Eosinophils % (auto) 0.7 % (0.0-7.0); Lymphocytes # (auto) 1.9 10 ^3/uL (0.4-5.4); Lymphocytes % (auto) 21.8 % (10.0-50.0); Mean Corpuscular Hgb Conc. 33.2 g/dL (32.0-36.0); Mean Corpuscular Volume 83.2 fL (80.0-100.0); Monocytes % (auto) 7.4 % (0.0-12.0); Neutrophils # (auto) 6.2 10 ^3/uL (1.6-8.6); Neutrophils % (auto) 69.5 % (37.0-80.0); Red Blood Cells 3.08 10^6/uL (4.0-5.20); Red Cell Distribution Width 13.9 % (11.8-14.3); White Blood Cell 8.9 10^3/uL (4.4-10.8)
[2022-11-01 07:45] VITALS: PULSE 87; RESP 19; O2SAT 97
[2022-11-01] MEDS: cefTRIAXone 1GM/50ML D5W 50 ML IV SCH (09:52)
[2022-11-01] MEDS ORDERED: levoFLOXacin 250MG 50 ML IV SCH (10:00)
[2022-11-01 10:13] LABS: Cholesterol 51 mg/dL (< 200); HDL Cholesterol 35 mg/dL (40-59); LDL Cholesterol 16 mg/dL (< 100); Triglycerides 73 mg/dL (< 150)
[2022-11-01] MEDS: FAMOTIDINE (10MG/ML) 2ML VL IV SCH (11:00)
[2022-11-01 11:43] LABS: Rapid Influenza A Negative (Negative); Rapid Influenza B Negative (Negative)
[2022-11-01 12:05] LABS: COVID19 ANTIGEN SOFIA FIA NEGATIVE (NEGATIVE)
[2022-11-01 19:35] VITALS: PULSE 84; RESP 18; O2SAT 97
[2022-11-01] MEDS: PANTOPRAZOLE 40 MG TAB PO SCH (23:06)
[2022-11-01 23:30] VITALS: BP 103/69; PULSE 88; PULSE 89; RESP 16; TEMP 97.8; O2SAT 99
[2022-11-02] VITALS (10 sets, daily range): BP systolic 57–110; BP diastolic 36–76; PULSE 87–92; RESP 16–20; TEMP 97.8–98.9; O2SAT 96–100
[2022-11-02] MEDS ORDERED: METR-344 PO (00:50)
[2022-11-02] MEDS ORDERED: ATO40T PO (00:50)
[2022-11-02] MEDS ORDERED: METF-371 PO (00:50)
[2022-11-02] MEDS ORDERED: PANT1INJ3 PO (00:50)
[2022-11-02] MEDS: ACETAMINOPHEN 325 MG TAB PO PRN (04:14)
[2022-11-02] MEDS: ACCU-CHEK COMFORT CURVE STRIP VI SCH ×5 (05:57→21:11)
[2022-11-02] MEDS: InsuLIN REG 1unit/0.01ml Soln (100units/ml) SC SCH ×5 (06:03→21:29)
[2022-11-02] MEDS: SODIUM CHLORIDE 0.9% 1,000 ML IV SCH ×2 (06:08→16:58)
[2022-11-02 07:11] LABS: Basophils # (auto) 0.1 10 ^3/uL (0-0.2); Eosinophils # (auto) 0.1 10 ^3/uL (0-0.8); Monocytes # (auto) 0.7 10 ^3/uL (0-1.3); Nucleated Red Blood Cells % 0.1 %
[2022-11-02 07:14] LABS: Basophils % (auto) 0.7 % (0.0-2.0); Hematocrit 27.7 % (36.0-46.0); Lymphocytes % (auto) 24.2 % (10.0-50.0); Mean Corpuscular Hemoglobin 26.9 pg (28.0-32.0); Mean Corpuscular Hgb Conc. 32.3 g/dL (32.0-36.0); Mean Corpuscular Volume 83.1 fL (80.0-100.0); Monocytes % (auto) 8.6 % (0.0-12.0); Neutrophils # (auto) 5.4 10 ^3/uL (1.6-8.6); Neutrophils % (auto) 65.5 % (37.0-80.0); Red Blood Cells 3.34 10^6/uL (4.0-5.20); Red Cell Distribution Width 14.1 % (11.8-14.3); White Blood Cell 8.2 10^3/uL (4.4-10.8)
[2022-11-02 08:01] LABS: BUN/Creatinine Ratio 15.8 (10.0-20.0); Calcium 8.4 mg/dL (8.7-10.4)
[2022-11-02] MEDS: cefTRIAXone 1GM/50ML D5W 50 ML IV SCH (08:46)
[2022-11-02] MEDS: PANTOPRAZOLE 40 MG TAB PO SCH ×2 (08:47→21:11)
[2022-11-02] MEDS: ENOXAPARIN SOD 40 MG/0.4 ML SYRINGE SC SCH (08:47)
[2022-11-03] VITALS (7 sets, daily range): BP systolic 91–108; BP diastolic 52–73; PULSE 83–108; RESP 16–20; TEMP 98.3–98.8; O2SAT 98–100
[2022-11-03] MEDS: ACCU-CHEK COMFORT CURVE STRIP VI SCH ×4 (06:16→21:33)
[2022-11-03] MEDS: InsuLIN REG 1unit/0.01ml Soln (100units/ml) SC SCH ×4 (06:16→21:50)
[2022-11-03] MEDS: SODIUM CHLORIDE 0.9% 1,000 ML IV SCH ×3 (06:17→21:49)
[2022-11-03 06:37] LABS: Basophils # (auto) 0.1 10 ^3/uL (0-0.2); Basophils % (auto) 0.6 % (0.0-2.0); Eosinophils # (auto) 0.1 10 ^3/uL (0-0.8); Eosinophils % (auto) 0.8 % (0.0-7.0); Hematocrit 28.5 % (36.0-46.0); Hemoglobin 9.4 g/dL (12.2-16.2); Lymphocytes # (auto) 2.8 10 ^3/uL (0.4-5.4); Mean Corpuscular Hemoglobin 27.4 pg (28.0-32.0); Mean Corpuscular Hgb Conc. 32.9 g/dL (32.0-36.0); Mean Corpuscular Volume 83.3 fL (80.0-100.0); Monocytes # (auto) 0.7 10 ^3/uL (0-1.3); Monocytes % (auto) 8.5 % (0.0-12.0); Neutrophils % (auto) 58.1 % (37.0-80.0); Red Blood Cells 3.42 10^6/uL (4.0-5.20); Red Cell Distribution Width 14.1 % (11.8-14.3); White Blood Cell 8.7 10^3/uL (4.4-10.8)
[2022-11-03 06:38] LABS: Chloride 105 mmol/L (98-107); Potassium 4.3 mmol/L (3.5-5.1); Sodium 139 mmol/L (136-145)
[2022-11-03 06:39] LABS: Anion Gap 7.7 (5-15); Carbon Dioxide 26.3 mmol/L (20-30)
[2022-11-03 06:40] LABS: Calcium 8.7 mg/dL (8.5-10.1)
[2022-11-03 06:45] LABS: BUN/Creatinine Ratio 15.1 (10.0-20.0); Blood Urea Nitrogen 14 mg/dL (9-23); Glucose 122 mg/dL (74-106)
[2022-11-03] MEDS: HYDROcodone-ACET 5/325MG TAB PO PRN (09:02)
[2022-11-03] MEDS: cefTRIAXone 1GM/50ML D5W 50 ML IV SCH (09:07)
[2022-11-03] MEDS: ENOXAPARIN SOD 40 MG/0.4 ML SYRINGE SC SCH (09:07)
[2022-11-03] MEDS: PANTOPRAZOLE 40 MG TAB PO SCH (09:07)
[2022-11-04] VITALS (8 sets, daily range): BP systolic 56–110; BP diastolic 21–71; PULSE 84–98; RESP 16–18; TEMP 98.1–99.1; O2SAT 97–100
[2022-11-04] MEDS: ACETAMINOPHEN 325 MG TAB PO PRN (05:12)
[2022-11-04] MEDS: InsuLIN REG 1unit/0.01ml Soln (100units/ml) SC SCH ×4 (06:20→21:20)
[2022-11-04] MEDS: ACCU-CHEK COMFORT CURVE STRIP VI SCH ×4 (06:22→21:18)
[2022-11-04 06:36] LABS: Chloride 105 mmol/L (98-107); Potassium 3.9 mmol/L (3.5-5.1); Sodium 135 mmol/L (136-145)
[2022-11-04 06:42] LABS: Glucose 176 mg/dL (74-106)
[2022-11-04 06:43] LABS: BUN/Creatinine Ratio 12.5 (10.0-20.0); Blood Urea Nitrogen 10 mg/dL (9-23)
[2022-11-04 06:44] LABS: Basophils # (auto) 0 10 ^3/uL (0-0.2); Eosinophils # (auto) 0.1 10 ^3/uL (0-0.8); Hemoglobin 8.4 g/dL (12.2-16.2); Lymphocytes # (auto) 2.2 10 ^3/uL (0.4-5.4); Monocytes # (auto) 0.7 10 ^3/uL (0-1.3)
[2022-11-04 06:47] LABS: Basophils % (auto) 0.4 % (0.0-2.0); Eosinophils % (auto) 0.8 % (0.0-7.0); Hematocrit 25.2 % (36.0-46.0); Lymphocytes % (auto) 23.4 % (10.0-50.0); Mean Corpuscular Hemoglobin 27.8 pg (28.0-32.0); Mean Corpuscular Hgb Conc. 33.3 g/dL (32.0-36.0); Mean Corpuscular Volume 83.3 fL (80.0-100.0); Monocytes % (auto) 7.5 % (0.0-12.0); Neutrophils # (auto) 6.3 10 ^3/uL (1.6-8.6); Neutrophils % (auto) 67.9 % (37.0-80.0); Red Blood Cells 3.02 10^6/uL (4.0-5.20); White Blood Cell 9.3 10^3/uL (4.4-10.8)
[2022-11-04] MEDS: cefTRIAXone 1GM/50ML D5W 50 ML IV SCH (08:46)
[2022-11-04] MEDS: ENOXAPARIN SOD 40 MG/0.4 ML SYRINGE SC SCH (08:46)
[2022-11-04] MEDS: SODIUM CHLORIDE 0.9% 1,000 ML IV SCH ×2 (08:48→21:25)
[2022-11-04] MEDS ORDERED: PANTOPRAZOLE 40 MG TAB PO SCH (10:00)
[2022-11-04] MEDS ORDERED: KETOROLAC TROMETH 30 MG/ML 1ML VIAL IV PRN (10:30)
[2022-11-05] VITALS (10 sets, daily range): BP systolic 59–151; BP diastolic 36–81; PULSE 66–102; RESP 16–20; TEMP 97.6–98.6; O2SAT 94–100
[2022-11-05] MEDS: ACCU-CHEK COMFORT CURVE STRIP VI SCH ×4 (07:00→21:33)
[2022-11-05] MEDS: InsuLIN REG 1unit/0.01ml Soln (100units/ml) SC SCH ×4 (07:00→21:32)
[2022-11-05 09:16] LABS: Basophils # (auto) 0 10 ^3/uL (0-0.2); Basophils % (auto) 0.6 % (0.0-2.0); Eosinophils # (auto) 0.1 10 ^3/uL (0-0.8); Eosinophils % (auto) 1.4 % (0.0-7.0); Hematocrit 27.1 % (36.0-46.0); Hemoglobin 8.8 g/dL (12.2-16.2); Lymphocytes # (auto) 2.1 10 ^3/uL (0.4-5.4); Lymphocytes % (auto) 25.4 % (10.0-50.0); Mean Corpuscular Hemoglobin 27.1 pg (28.0-32.0); Mean Corpuscular Hgb Conc. 32.5 g/dL (32.0-36.0); Mean Corpuscular Volume 83.5 fL (80.0-100.0); Monocytes # (auto) 0.5 10 ^3/uL (0-1.3); Monocytes % (auto) 6.1 % (0.0-12.0); Neutrophils # (auto) 5.4 10 ^3/uL (1.6-8.6); Neutrophils % (auto) 66.5 % (37.0-80.0); Red Blood Cells 3.25 10^6/uL (4.0-5.20); Red Cell Distribution Width 14.6 % (11.8-14.3); White Blood Cell 8.2 10^3/uL (4.4-10.8)
[2022-11-05 09:43] LABS: Anion Gap 4.5 (5-15); Calcium 8.5 mg/dL (8.5-10.1); Carbon Dioxide 24.5 mmol/L (20-30); Chloride 110 mmol/L (98-107); Potassium 4.3 mmol/L (3.5-5.1); Sodium 139 mmol/L (136-145)
[2022-11-05 09:49] LABS: Glucose 173 mg/dL (74-106)
[2022-11-05 09:50] LABS: BUN/Creatinine Ratio 14.7 (10.0-20.0); Blood Urea Nitrogen 11 mg/dL (9-23)
[2022-11-05] MEDS: ENOXAPARIN SOD 40 MG/0.4 ML SYRINGE SC SCH (09:59)
[2022-11-05] MEDS: cefTRIAXone 1GM/50ML D5W 50 ML IV SCH (09:59)
[2022-11-05] MEDS: SODIUM CHLORIDE 0.9% 1,000 ML IV SCH (10:08)
[2022-11-05] MEDS ORDERED: MIDODRINE HCL 10 MG TAB PO ONE (13:45)
[2022-11-05] MEDS: MIDODRINE HCL 10 MG TAB PO SCH (21:33)
[2022-11-06] VITALS (13 sets, daily range): BP systolic 82–129; BP diastolic 47–88; PULSE 84–99; RESP 16–18; TEMP 98.1–98.8; O2SAT 95–100
[2022-11-06] MEDS: SODIUM CHLORIDE 0.9% 1,000 ML IV SCH ×3 (04:00→17:36)
[2022-11-06] MEDS: ACCU-CHEK COMFORT CURVE STRIP VI SCH ×4 (06:14→21:17)
[2022-11-06] MEDS: InsuLIN REG 1unit/0.01ml Soln (100units/ml) SC SCH ×4 (06:15→22:04)
[2022-11-06 06:49] LABS: Basophils # (auto) 0 10 ^3/uL (0-0.2); Basophils % (auto) 0.6 % (0.0-2.0); Eosinophils # (auto) 0.1 10 ^3/uL (0-0.8); Eosinophils % (auto) 1.8 % (0.0-7.0); Hematocrit 27.1 % (36.0-46.0); Lymphocytes # (auto) 2.1 10 ^3/uL (0.4-5.4); Lymphocytes % (auto) 29.1 % (10.0-50.0); Mean Corpuscular Hemoglobin 27.6 pg (28.0-32.0); Mean Corpuscular Hgb Conc. 33.1 g/dL (32.0-36.0); Mean Corpuscular Volume 83.4 fL (80.0-100.0); Monocytes # (auto) 0.4 10 ^3/uL (0-1.3); Monocytes % (auto) 6.2 % (0.0-12.0); Neutrophils # (auto) 4.5 10 ^3/uL (1.6-8.6); Neutrophils % (auto) 62.3 % (37.0-80.0); Red Blood Cells 3.25 10^6/uL (4.0-5.20); Red Cell Distribution Width 14.7 % (11.8-14.3); White Blood Cell 7.2 10^3/uL (4.4-10.8)
[2022-11-06 06:52] LABS: Calcium 8.9 mg/dL (8.7-10.4); Chloride 107 mmol/L (98-107); Potassium 4.2 mmol/L (3.5-5.1); Sodium 138 mmol/L (136-145)
[2022-11-06 06:58] LABS: BUN/Creatinine Ratio 13.4 (10.0-20.0); Blood Urea Nitrogen 11 mg/dL (9-23); Glucose 199 mg/dL (74-106)
[2022-11-06] MEDS ORDERED: FLUDROCORTISONE ACETATE 0.1 MG TAB PO ONE (11:15)
[2022-11-06] MEDS: ENOXAPARIN SOD 40 MG/0.4 ML SYRINGE SC SCH (11:42)
[2022-11-06] MEDS: MIDODRINE HCL 10 MG TAB PO SCH ×2 (11:44→17:32)
[2022-11-06] MEDS: cefTRIAXone 1GM/50ML D5W 50 ML IV SCH (11:45)
[2022-11-06] MEDS ORDERED: ARTIFICIAL TEARS 15ml EACHEYE PRN (18:30)
[2022-11-06] MEDS: ACETAMINOPHEN 325 MG TAB PO PRN (22:08)
[2022-11-07] VITALS (7 sets, daily range): BP systolic 97–147; BP diastolic 63–82; PULSE 87–98; RESP 16–18; TEMP 97.7–98.2; O2SAT 97–100
[2022-11-07] MEDS: ACCU-CHEK COMFORT CURVE STRIP VI SCH ×4 (05:51→21:44)
[2022-11-07] MEDS: MIDODRINE HCL 10 MG TAB PO SCH ×3 (05:51→21:44)
[2022-11-07] MEDS: InsuLIN REG 1unit/0.01ml Soln (100units/ml) SC SCH ×4 (05:52→21:45)
[2022-11-07 06:08] LABS: Basophils # (auto) 0 10 ^3/uL (0-0.2); Basophils % (auto) 0.7 % (0.0-2.0); Eosinophils # (auto) 0.2 10 ^3/uL (0-0.8); Eosinophils % (auto) 3.4 % (0.0-7.0); Hematocrit 26.9 % (36.0-46.0); Hemoglobin 8.7 g/dL (12.2-16.2); Lymphocytes # (auto) 1.9 10 ^3/uL (0.4-5.4); Lymphocytes % (auto) 34.1 % (10.0-50.0); Mean Corpuscular Hgb Conc. 32.4 g/dL (32.0-36.0); Mean Corpuscular Volume 83.3 fL (80.0-100.0); Monocytes # (auto) 0.4 10 ^3/uL (0-1.3); Monocytes % (auto) 7.1 % (0.0-12.0); Neutrophils # (auto) 3.1 10 ^3/uL (1.6-8.6); Neutrophils % (auto) 54.7 % (37.0-80.0); Red Blood Cells 3.23 10^6/uL (4.0-5.20); Red Cell Distribution Width 14.3 % (11.8-14.3); White Blood Cell 5.6 10^3/uL (4.4-10.8)
[2022-11-07 06:26] LABS: Chloride 106 mmol/L (98-107); Potassium 3.9 mmol/L (3.5-5.1); Sodium 138 mmol/L (136-145)
[2022-11-07 06:27] LABS: Anion Gap 6.9 (5-15); Calcium 8.8 mg/dL (8.7-10.4); Carbon Dioxide 25.1 mmol/L (20-30)
[2022-11-07 06:32] LABS: BUN/Creatinine Ratio 18.4 (10.0-20.0); Blood Urea Nitrogen 16 mg/dL (9-23); Glucose 254 mg/dL (74-106)
[2022-11-07] MEDS: cefTRIAXone 1GM/50ML D5W 50 ML IV SCH (09:41)
[2022-11-07] MEDS: ENOXAPARIN SOD 40 MG/0.4 ML SYRINGE SC SCH (09:42)
[2022-11-07] MEDS: FLUDROCORTISONE ACETATE 0.1 MG TAB PO SCH (09:43)
[2022-11-07] MEDS: SODIUM CHLORIDE 0.9% 1,000 ML IV SCH ×2 (09:44→21:54)
[2022-11-07] MEDS ORDERED: FLUCONAZOLE 100 MG TAB PO ONE (16:15)
[2022-11-08] VITALS (7 sets, daily range): BP systolic 116–132; BP diastolic 73–85; PULSE 64–91; RESP 18–21; TEMP 97.5–98.3; O2SAT 97–99
[2022-11-08] MEDS: ACETAMINOPHEN 325 MG TAB PO PRN (04:36)
[2022-11-08] MEDS: ACCU-CHEK COMFORT CURVE STRIP VI SCH ×4 (06:13→20:57)
[2022-11-08 06:15] LABS: Basophils # (auto) 0 10 ^3/uL (0-0.2); Basophils % (auto) 0.7 % (0.0-2.0); Eosinophils # (auto) 0.2 10 ^3/uL (0-0.8); Eosinophils % (auto) 3.5 % (0.0-7.0); Hemoglobin 8.9 g/dL (12.2-16.2); Lymphocytes # (auto) 2.3 10 ^3/uL (0.4-5.4); Lymphocytes % (auto) 37.2 % (10.0-50.0); Mean Corpuscular Hemoglobin 27.4 pg (28.0-32.0); Mean Corpuscular Hgb Conc. 33.1 g/dL (32.0-36.0); Mean Corpuscular Volume 82.9 fL (80.0-100.0); Monocytes # (auto) 0.4 10 ^3/uL (0-1.3); Monocytes % (auto) 7.1 % (0.0-12.0); Neutrophils # (auto) 3.2 10 ^3/uL (1.6-8.6); Neutrophils % (auto) 51.5 % (37.0-80.0); Red Blood Cells 3.25 10^6/uL (4.0-5.20); Red Cell Distribution Width 14.2 % (11.8-14.3); White Blood Cell 6.2 10^3/uL (4.4-10.8)
[2022-11-08] MEDS: MIDODRINE HCL 10 MG TAB PO SCH ×3 (06:32→21:56)
[2022-11-08] MEDS: InsuLIN REG 1unit/0.01ml Soln (100units/ml) SC SCH ×4 (06:34→20:57)
[2022-11-08 06:41] LABS: Calcium 8.9 mg/dL (8.7-10.4); Chloride 106 mmol/L (98-107); Potassium 3.8 mmol/L (3.5-5.1); Sodium 138 mmol/L (136-145)
[2022-11-08 06:42] LABS: Anion Gap 5.9 (5-15); Carbon Dioxide 26.1 mmol/L (20-30)
[2022-11-08 06:47] LABS: BUN/Creatinine Ratio 15.1 (10.0-20.0); Blood Urea Nitrogen 13 mg/dL (9-23); Glucose 174 mg/dL (74-106)
[2022-11-08] MEDS: cefTRIAXone 1GM/50ML D5W 50 ML IV SCH (08:43)
[2022-11-08] MEDS: FLUCONAZOLE 100 MG TAB PO SCH (08:44)
[2022-11-08] MEDS: FLUDROCORTISONE ACETATE 0.1 MG TAB PO SCH (08:44)
[2022-11-08] MEDS: ENOXAPARIN SOD 40 MG/0.4 ML SYRINGE SC SCH (08:45)
[2022-11-08] MEDS: SODIUM CHLORIDE 0.9% 1,000 ML IV SCH (15:55)
[2022-11-09] VITALS (8 sets, daily range): BP systolic 64–123; BP diastolic 37–97; PULSE 84–94; RESP 14–21; TEMP 97.7–98.2; O2SAT 96–100
[2022-11-09] MEDS: SODIUM CHLORIDE 0.9% 1,000 ML IV SCH (05:08)
[2022-11-09] MEDS: MIDODRINE HCL 10 MG TAB PO SCH ×3 (05:41→21:26)
[2022-11-09 06:19] LABS: Basophils # (auto) 0.1 10 ^3/uL (0-0.2); Basophils % (auto) 0.9 % (0.0-2.0); Eosinophils # (auto) 0.2 10 ^3/uL (0-0.8); Eosinophils % (auto) 3.9 % (0.0-7.0); Hematocrit 27.3 % (36.0-46.0); Lymphocytes # (auto) 2.1 10 ^3/uL (0.4-5.4); Lymphocytes % (auto) 36.3 % (10.0-50.0); Mean Corpuscular Hemoglobin 27.1 pg (28.0-32.0); Mean Corpuscular Hgb Conc. 32.9 g/dL (32.0-36.0); Mean Corpuscular Volume 82.5 fL (80.0-100.0); Monocytes # (auto) 0.4 10 ^3/uL (0-1.3); Monocytes % (auto) 7.6 % (0.0-12.0); Neutrophils % (auto) 51.3 % (37.0-80.0); Red Cell Distribution Width 14.4 % (11.8-14.3); White Blood Cell 5.9 10^3/uL (4.4-10.8)
[2022-11-09] MEDS: InsuLIN REG 1unit/0.01ml Soln (100units/ml) SC SCH ×4 (06:25→21:29)
[2022-11-09 06:31] LABS: Chloride 104 mmol/L (98-107); Potassium 3.3 mmol/L (3.5-5.1); Sodium 138 mmol/L (136-145)
[2022-11-09 06:32] LABS: Anion Gap 6.9 (5-15); Calcium 8.9 mg/dL (8.5-10.1); Carbon Dioxide 27.1 mmol/L (20-30)
[2022-11-09] MEDS: ACCU-CHEK COMFORT CURVE STRIP VI SCH ×4 (06:32→21:25)
[2022-11-09 06:37] LABS: BUN/Creatinine Ratio 14.3 (10.0-20.0); Blood Urea Nitrogen 13 mg/dL (9-23); Glucose 220 mg/dL (74-106)
[2022-11-09] MEDS: FLUDROCORTISONE ACETATE 0.1 MG TAB PO SCH ×2 (09:19→11:15)
[2022-11-09] MEDS: FLUCONAZOLE 100 MG TAB PO SCH (09:19)
[2022-11-09] MEDS: ENOXAPARIN SOD 40 MG/0.4 ML SYRINGE SC SCH (09:20)
[2022-11-09] MEDS ORDERED: POTASSIUM EFFERVESENT TAB 25 MEQ PO ONE (10:30)
[2022-11-09] MEDS ORDERED: INSULIN LANTUS (GLARGINE) 1 /0.01ml (100units/ml) SC ONE (11:45)
[2022-11-09] MEDS ORDERED: InsuLIN REG 1unit/0.01ml Soln (100units/ml) ONE (16:46)
[2022-11-10 05:21] VITALS: BP 92/57; PULSE 90; RESP 14; TEMP 98.1; O2SAT 0
[2022-11-10] MEDS: MIDODRINE HCL 10 MG TAB PO SCH ×3 (06:10→22:05)
[2022-11-10] MEDS: ACCU-CHEK COMFORT CURVE STRIP VI SCH ×4 (06:11→21:12)
[2022-11-10] MEDS: InsuLIN REG 1unit/0.01ml Soln (100units/ml) SC SCH ×4 (06:11→21:13)
[2022-11-10] MEDS: INSULIN LANTUS (GLARGINE) 1 /0.01ml (100units/ml) SC SCH (06:12)
[2022-11-10] MEDS: ACETAMINOPHEN 325 MG TAB PO PRN (06:18)
[2022-11-10] MEDS ORDERED: DEXTROSE (50%) 50ML SYRG IV PRN (08:45)
[2022-11-10] MEDS ORDERED: POTASSIUM CHL 20 Meq TABLET PO ONE (08:45)
[2022-11-10 09:00] VITALS: BP_SYST 121; BP_SYST 124; BP_SYST 75; BP_DIAS 49; BP_DIAS 76; BP_DIAS 79; PULSE 87; RESP 17; TEMP 98.1; O2SAT 98
[2022-11-10] MEDS: ENOXAPARIN SOD 40 MG/0.4 ML SYRINGE SC SCH (09:58)
[2022-11-10] MEDS: FLUDROCORTISONE ACETATE 0.1 MG TAB PO SCH (09:59)
[2022-11-10] MEDS: FLUCONAZOLE 100 MG TAB PO SCH (09:59)
[2022-11-10 13:00] VITALS: BP 114/65; PULSE 87; RESP 17; TEMP 97.8; O2SAT 99
[2022-11-10 15:55] LABS: Basophils # (auto) 0.1 10 ^3/uL (0-0.2); Basophils % (auto) 1.1 % (0.0-2.0); Eosinophils # (auto) 0.2 10 ^3/uL (0-0.8); Hemoglobin 9.3 g/dL (12.2-16.2); Lymphocytes # (auto) 2.5 10 ^3/uL (0.4-5.4); Red Cell Distribution Width 14.6 % (11.8-14.3); White Blood Cell 6.3 10^3/uL (4.4-10.8)
[2022-11-10 15:56] LABS: Eosinophils % (auto) 3.1 % (0.0-7.0); Hematocrit 29.1 % (36.0-46.0); Lymphocytes % (auto) 40.6 % (10.0-50.0); Mean Corpuscular Hgb Conc. 32.2 g/dL (32.0-36.0); Mean Corpuscular Volume 83.9 fL (80.0-100.0); Monocytes # (auto) 0.4 10 ^3/uL (0-1.3); Monocytes % (auto) 5.7 % (0.0-12.0); Neutrophils # (auto) 3.1 10 ^3/uL (1.6-8.6); Neutrophils % (auto) 49.5 % (37.0-80.0); Nucleated Red Blood Cells % 0.1 %; Red Blood Cells 3.46 10^6/uL (4.0-5.20)
[2022-11-10 16:13] LABS: Chloride 103 mmol/L (98-107); Potassium 4.2 mmol/L (3.5-5.1); Sodium 135 mmol/L (136-145)
[2022-11-10 16:14] LABS: Calcium 9.4 mg/dL (8.5-10.1)
[2022-11-10 16:19] LABS: BUN/Creatinine Ratio 15.5 (10.0-20.0); Blood Urea Nitrogen 16 mg/dL (9-23); Glucose 263 mg/dL (74-106)
[2022-11-10 17:00] VITALS: BP 116/81; PULSE 86; RESP 17; TEMP 97.7; O2SAT 100
[2022-11-10 19:20] LABS: % Iron Saturation 16.5 % (15-50)
[2022-11-10 20:00] VITALS: PULSE 86; RESP 18; O2SAT 100
[2022-11-10 22:00] VITALS: BP 137/87; PULSE 91; RESP 14; TEMP 98; O2SAT 100
[2022-11-11] VITALS (10 sets, daily range): BP systolic 75–143; BP diastolic 47–85; PULSE 59–93; RESP 15–19; TEMP 97.8–98.7; O2SAT 96–100
[2022-11-11 05:58] LABS: Anion Gap 0.1 (5-15); Carbon Dioxide 32.9 mmol/L (20-30); Chloride 105 mmol/L (98-107); Potassium 3.6 mmol/L (3.5-5.1); Sodium 138 mmol/L (136-145)
[2022-11-11 05:59] LABS: Calcium 9.3 mg/dL (8.5-10.1)
[2022-11-11 06:04] LABS: BUN/Creatinine Ratio 21.3 (10.0-20.0); Blood Urea Nitrogen 23 mg/dL (9-23); Glucose 204 mg/dL (74-106)
[2022-11-11] MEDS: MIDODRINE HCL 10 MG TAB PO SCH ×3 (06:18→18:40)
[2022-11-11] MEDS: ACCU-CHEK COMFORT CURVE STRIP VI SCH ×4 (06:18→21:25)
[2022-11-11] MEDS: InsuLIN REG 1unit/0.01ml Soln (100units/ml) SC SCH ×4 (06:19→21:28)
[2022-11-11] MEDS: INSULIN LANTUS (GLARGINE) 1 /0.01ml (100units/ml) SC SCH (06:20)
[2022-11-11] MEDS: FLUDROCORTISONE ACETATE 0.1 MG TAB PO SCH (09:56)
[2022-11-11] MEDS: ENOXAPARIN SOD 40 MG/0.4 ML SYRINGE SC SCH (09:56)
[2022-11-11] MEDS: FLUCONAZOLE 100 MG TAB PO SCH (10:00)
[2022-11-11] MEDS ORDERED: IRON SUCROSE COMPLEX 200 MG in SODIUM CHL 0.9% 100 ML IV SCH (12:00)
[2022-11-11] MEDS: SODIUM CHLORIDE 0.9% 1,000 ML IV SCH (12:59)
[2022-11-11] MEDS: SODIUM FERR GLUC 62.5MG/5ML 125 MG in SODIUM CHL 0.9% 100 ML IV SCH (18:39)
[2022-11-11] MEDS: FERROUS SULFATE 325mg EC TAB PO SCH (18:40)
[2022-11-12] VITALS (7 sets, daily range): BP systolic 69–148; BP diastolic 46–84; PULSE 80–91; RESP 15–18; TEMP 97.9–98.7; O2SAT 98–100
[2022-11-12] MEDS: SODIUM CHLORIDE 0.9% 1,000 ML IV SCH ×3 (04:50→22:29)
[2022-11-12] MEDS: MIDODRINE HCL 10 MG TAB PO SCH ×3 (05:20→18:51)
[2022-11-12] MEDS: ACETAMINOPHEN 325 MG TAB PO PRN (05:20)
[2022-11-12] MEDS: INSULIN LANTUS (GLARGINE) 1 /0.01ml (100units/ml) SC SCH (06:27)
[2022-11-12] MEDS: ACCU-CHEK COMFORT CURVE STRIP VI SCH ×4 (06:27→22:28)
[2022-11-12] MEDS: InsuLIN REG 1unit/0.01ml Soln (100units/ml) SC SCH ×4 (06:28→22:29)
[2022-11-12 06:47] LABS: Chloride 107 mmol/L (98-107); Potassium 3.3 mmol/L (3.5-5.1); Sodium 139 mmol/L (136-145)
[2022-11-12 06:48] LABS: Anion Gap 8.5 (5-15); Calcium 8.7 mg/dL (8.5-10.1); Carbon Dioxide 23.5 mmol/L (20-30)
[2022-11-12 06:53] LABS: BUN/Creatinine Ratio 24.1 (10.0-20.0); Blood Urea Nitrogen 20 mg/dL (9-23); Glucose 123 mg/dL (74-106)
[2022-11-12] MEDS ORDERED: POTASSIUM EFFERVESENT TAB 25 MEQ PO ONE (07:45)
[2022-11-12] MEDS: FERROUS SULFATE 325mg EC TAB PO SCH ×2 (09:57→18:50)
[2022-11-12] MEDS: FLUDROCORTISONE ACETATE 0.1 MG TAB PO SCH (09:57)
[2022-11-12] MEDS: FLUCONAZOLE 100 MG TAB PO SCH (09:57)
[2022-11-12] MEDS: ENOXAPARIN SOD 40 MG/0.4 ML SYRINGE SC SCH (09:59)
[2022-11-12] MEDS ORDERED: POTASSIUM CHL 20 Meq TABLET PO ONE (10:00)
[2022-11-12] MEDS: SODIUM FERR GLUC 62.5MG/5ML 125 MG in SODIUM CHL 0.9% 100 ML IV SCH (15:38)
[2022-11-13 05:00] VITALS: BP 102/66; PULSE 78; RESP 18; TEMP 98; O2SAT 97
[2022-11-13] MEDS: INSULIN LANTUS (GLARGINE) 1 /0.01ml (100units/ml) SC SCH (06:10)
[2022-11-13] MEDS: InsuLIN REG 1unit/0.01ml Soln (100units/ml) SC SCH ×4 (06:10→22:38)
[2022-11-13] MEDS: MIDODRINE HCL 10 MG TAB PO SCH ×3 (06:11→16:54)
[2022-11-13] MEDS: ACCU-CHEK COMFORT CURVE STRIP VI SCH ×4 (06:11→22:39)
[2022-11-13 08:17] LABS: Anion Gap 7.2 (5-15); Carbon Dioxide 25.8 mmol/L (20-30); Chloride 108 mmol/L (98-107); Potassium 3.7 mmol/L (3.5-5.1); Sodium 141 mmol/L (136-145)
[2022-11-13 08:19] LABS: Calcium 9.1 mg/dL (8.5-10.1)
[2022-11-13] MEDS: FERROUS SULFATE 325mg EC TAB PO SCH (08:19)
[2022-11-13] MEDS: FLUDROCORTISONE ACETATE 0.1 MG TAB PO SCH (08:20)
[2022-11-13] MEDS: FLUCONAZOLE 100 MG TAB PO SCH (08:20)
[2022-11-13] MEDS: ENOXAPARIN SOD 40 MG/0.4 ML SYRINGE SC SCH (08:20)
[2022-11-13 08:23] LABS: BUN/Creatinine Ratio 21.4 (10.0-20.0); Blood Urea Nitrogen 18 mg/dL (9-23); Glucose 101 mg/dL (74-106)
[2022-11-13 09:00] VITALS: BP 123/75; PULSE 85; RESP 19; TEMP 98.5; O2SAT 98
[2022-11-13] MEDS: SODIUM CHLORIDE 0.9% 1,000 ML IV SCH (12:24)
[2022-11-13 13:00] VITALS: BP 123/77; PULSE 85; RESP 17; TEMP 98.4; O2SAT 100
[2022-11-13] MEDS: SODIUM FERR GLUC 62.5MG/5ML 125 MG in SODIUM CHL 0.9% 100 ML IV SCH (13:07)
[2022-11-13 16:48] VITALS: BP 103/64; PULSE 86; RESP 16; TEMP 98.5; O2SAT 100
[2022-11-13 20:00] VITALS: O2SAT 100
[2022-11-13 22:00] VITALS: BP 138/88; PULSE 87; RESP 17; TEMP 98.9; O2SAT 98
[2022-11-14] MEDS: ACETAMINOPHEN 325 MG TAB PO PRN (02:12)
[2022-11-14] MEDS: SODIUM CHLORIDE 0.9% 1,000 ML IV SCH ×3 (02:14→04:52)
[2022-11-14 05:00] VITALS: BP 120/70; PULSE 80; RESP 15; TEMP 98.5; O2SAT 98
[2022-11-14] MEDS: MIDODRINE HCL 10 MG TAB PO SCH ×3 (06:22→17:32)
[2022-11-14] MEDS: ACCU-CHEK COMFORT CURVE STRIP VI SCH ×4 (06:25→21:10)
[2022-11-14] MEDS: INSULIN LANTUS (GLARGINE) 1 /0.01ml (100units/ml) SC SCH (06:26)
[2022-11-14 06:49] LABS: Chloride 106 mmol/L (98-107); Potassium 3.1 mmol/L (3.5-5.1); Sodium 141 mmol/L (136-145)
[2022-11-14 06:50] LABS: Anion Gap 8.1 (5-15); Carbon Dioxide 26.9 mmol/L (20-30)
[2022-11-14 06:51] LABS: Calcium 8.8 mg/dL (8.5-10.1)
[2022-11-14] MEDS: InsuLIN REG 1unit/0.01ml Soln (100units/ml) SC SCH ×4 (06:54→21:10)
[2022-11-14 06:55] LABS: Glucose 139 mg/dL (74-106)
[2022-11-14 06:56] LABS: BUN/Creatinine Ratio 22.2 (10.0-20.0); Blood Urea Nitrogen 20 mg/dL (9-23)
[2022-11-14 09:00] VITALS: BP 112/68; PULSE 79; RESP 17; TEMP 98.7; O2SAT 97
[2022-11-14] MEDS: FLUCONAZOLE 100 MG TAB PO SCH (09:20)
[2022-11-14] MEDS: FLUDROCORTISONE ACETATE 0.1 MG TAB PO SCH (09:21)
[2022-11-14] MEDS ORDERED: POTASSIUM EFFERVESENT TAB 25 MEQ PO ONE (10:00)
[2022-11-14] MEDS ORDERED: MAGNESIUM SULFATE 1GM/100ML 100 ML IV ONE (10:00)
[2022-11-14 10:49] LABS: Basophils # (auto) 0 10 ^3/uL (0-0.2); Basophils % (auto) 0.2 % (0.0-2.0); Eosinophils # (auto) 0.2 10 ^3/uL (0-0.8); Eosinophils % (auto) 2.3 % (0.0-7.0); Hematocrit 26.9 % (36.0-46.0); Hemoglobin 8.8 g/dL (12.2-16.2); Lymphocytes # (auto) 2.6 10 ^3/uL (0.4-5.4); Lymphocytes % (auto) 37.2 % (10.0-50.0); Mean Corpuscular Hemoglobin 27.5 pg (28.0-32.0); Mean Corpuscular Hgb Conc. 32.8 g/dL (32.0-36.0); Mean Corpuscular Volume 83.9 fL (80.0-100.0); Monocytes # (auto) 0.6 10 ^3/uL (0-1.3); Neutrophils # (auto) 3.6 10 ^3/uL (1.6-8.6); Neutrophils % (auto) 52.3 % (37.0-80.0); Nucleated Red Blood Cells % 0.2 %; Red Cell Distribution Width 15.2 % (11.8-14.3); White Blood Cell 6.9 10^3/uL (4.4-10.8)
[2022-11-14] MEDS: SODIUM FERR GLUC 62.5MG/5ML 125 MG in SODIUM CHL 0.9% 100 ML IV SCH (12:41)
[2022-11-14 13:00] VITALS: BP 125/83; PULSE 86; RESP 17; TEMP 97.8; O2SAT 98
[2022-11-14] MEDS ORDERED: LOPERAMIDE HCL 2 MG CAP/TAB PO ONE (15:00)
[2022-11-14 17:00] VITALS: BP 144/85; PULSE 79; RESP 17; TEMP 98.6; O2SAT 99
[2022-11-14 21:39] VITALS: BP 123/76; PULSE 85; RESP 18; TEMP 98.3; O2SAT 100
[2022-11-15 05:00] VITALS: BP 102/62; PULSE 77; RESP 17; TEMP 98.2; O2SAT 99
[2022-11-15] MEDS: INSULIN LANTUS (GLARGINE) 1 /0.01ml (100units/ml) SC SCH (06:02)
[2022-11-15] MEDS: ACCU-CHEK COMFORT CURVE STRIP VI SCH ×4 (06:02→22:03)
[2022-11-15] MEDS: InsuLIN REG 1unit/0.01ml Soln (100units/ml) SC SCH ×4 (06:03→22:12)
[2022-11-15] MEDS: MIDODRINE HCL 10 MG TAB PO SCH ×3 (06:05→17:34)
[2022-11-15 06:53] LABS: Chloride 105 mmol/L (98-107); Potassium 3.2 mmol/L (3.5-5.1); Sodium 140 mmol/L (136-145)
[2022-11-15 06:54] LABS: Calcium 8.9 mg/dL (8.7-10.4)
[2022-11-15 06:58] LABS: Glucose 129 mg/dL (74-106)
[2022-11-15 06:59] LABS: BUN/Creatinine Ratio 20.9 (10.0-20.0); Blood Urea Nitrogen 19 mg/dL (9-23); Magnesium 1.5 mg/dL (1.6-2.6)
[2022-11-15 07:18] LABS: Basophils # (auto) 0 10 ^3/uL (0-0.2); Basophils % (auto) 0.5 % (0.0-2.0); Eosinophils # (auto) 0.2 10 ^3/uL (0-0.8); Eosinophils % (auto) 2.4 % (0.0-7.0); Hematocrit 27.3 % (36.0-46.0); Hemoglobin 8.9 g/dL (12.2-16.2); Lymphocytes # (auto) 2.1 10 ^3/uL (0.4-5.4); Lymphocytes % (auto) 31.2 % (10.0-50.0); Mean Corpuscular Hemoglobin 27.5 pg (28.0-32.0); Mean Corpuscular Hgb Conc. 32.6 g/dL (32.0-36.0); Mean Corpuscular Volume 84.5 fL (80.0-100.0); Monocytes # (auto) 0.5 10 ^3/uL (0-1.3); Monocytes % (auto) 7.3 % (0.0-12.0); Neutrophils # (auto) 3.9 10 ^3/uL (1.6-8.6); Neutrophils % (auto) 58.6 % (37.0-80.0); Red Blood Cells 3.23 10^6/uL (4.0-5.20); Red Cell Distribution Width 15.1 % (11.8-14.3); White Blood Cell 6.6 10^3/uL (4.4-10.8)
[2022-11-15] MEDS ORDERED: MAGNESIUM SULFATE 1GM/100ML 100 ML IV ONE (07:45)
[2022-11-15] MEDS ORDERED: POTASSIUM CHL 20 Meq TABLET PO ONE (07:45)
[2022-11-15] MEDS ORDERED: OMNIPAQUE 12mg/ml 500ml ORAL SOLUTION PO ONE (08:28)
[2022-11-15 09:00] VITALS: BP 119/68; PULSE 74; RESP 17; TEMP 99; O2SAT 97
[2022-11-15] MEDS ORDERED: HYDROCORTISONE 10 MG TAB PO ONE (09:15)
[2022-11-15] MEDS: FLUCONAZOLE 100 MG TAB PO SCH (09:37)
[2022-11-15] MEDS: LOPERAMIDE HCL 2 MG CAP/TAB PO PRN ×2 (09:37→17:34)
[2022-11-15] MEDS: FLUDROCORTISONE ACETATE 0.1 MG TAB PO SCH (09:37)
[2022-11-15] MEDS: SODIUM CHLORIDE 0.9% 1,000 ML IV SCH ×2 (09:41→17:37)
[2022-11-15 11:09] LABS: Free T3 2.9 pg/mL (2.3-4.2); Free T4 (Free Thyroxine) 0.97 ng/dL (0.89-1.76); T3 Total 1.41 ng/mL (0.60-1.81)
[2022-11-15 11:10] LABS: Follicle Stimulating Hormone 34.62 IU/L (SEE BELOW)
[2022-11-15 11:11] LABS: Leuteinizing Hormone 37.8 IU/L
[2022-11-15] MEDS: ACETAMINOPHEN 325 MG TAB PO PRN (12:04)
[2022-11-15 13:00] VITALS: BP 67/43; PULSE 85; RESP 17; TEMP 98.2; O2SAT 92
[2022-11-15 17:00] VITALS: BP 114/72; PULSE 81; RESP 17; TEMP 98.4; O2SAT 96
[2022-11-15] MEDS ORDERED: HYDROCORTISONE 10 MG TAB PO SCH (17:00)
[2022-11-15 17:04] LABS: Urine Bacteria NONE SEEN /hpf (None Seen); Urine Blood Negative /uL (Negative); Urine Clarity Clear (Clear); Urine Color Colorless (Yellow); Urine Protein, UAD Negative (Negative); Urine Specific Gravity 1.025 (1.001-1.035); Urine Urobilinogen Normal (Negative); Urine WBC <1 /hpf (0 - 5); Urine pH 6.5 (5.0-8.0)
[2022-11-15] MEDS: Glucerna Carbsteady SHAKE Vanilla 8oz PO SCH (17:35)
[2022-11-15 20:00] VITALS: PULSE 89; RESP 18; O2SAT 99
[2022-11-15 22:00] VITALS: BP 137/75; PULSE 89; RESP 18; TEMP 98.2; O2SAT 99
[2022-11-15] MEDS: MAGNESIUM OXIDE 400 MG TAB PO SCH (22:03)
[2022-11-15] MEDS: MELATONIN 5 MG TAB PO SCH (22:03)
[2022-11-16] VITALS (9 sets, daily range): BP systolic 75–133; BP diastolic 45–75; PULSE 66–85; RESP 17–18; TEMP 97.6–98.3; O2SAT 97–100
[2022-11-16] MEDS: SODIUM CHLORIDE 0.9% 1,000 ML IV SCH ×3 (03:37→15:32)
[2022-11-16] MEDS: ACETAMINOPHEN 325 MG TAB PO PRN (03:48)
[2022-11-16 05:54] LABS: Chloride 105 mmol/L (98-107); Sodium 140 mmol/L (136-145)
[2022-11-16 05:55] LABS: Calcium 8.7 mg/dL (8.7-10.4)
[2022-11-16] MEDS: MIDODRINE HCL 10 MG TAB PO SCH ×3 (05:55→17:37)
[2022-11-16] MEDS: ACCU-CHEK COMFORT CURVE STRIP VI SCH ×4 (05:56→22:29)
[2022-11-16] MEDS: InsuLIN REG 1unit/0.01ml Soln (100units/ml) SC SCH ×4 (05:58→22:35)
[2022-11-16] MEDS: INSULIN LANTUS (GLARGINE) 1 /0.01ml (100units/ml) SC SCH (05:59)
[2022-11-16 06:00] LABS: BUN/Creatinine Ratio 25.3 (10.0-20.0); Blood Urea Nitrogen 22 mg/dL (9-23); Glucose 181 mg/dL (74-106)
[2022-11-16 06:01] LABS: Magnesium 1.6 mg/dL (1.6-2.6)
[2022-11-16 06:25] LABS: Potassium 2.9 mmol/L (3.5-5.1)
[2022-11-16] MEDS ORDERED: POTASSIUM CHL 20 Meq TABLET PO ONE (07:00)
[2022-11-16] MEDS: Glucerna Carbsteady SHAKE Vanilla 8oz PO SCH ×3 (07:31→17:37)
[2022-11-16] MEDS ORDERED: HYDROCORTISONE 10 MG TAB PO SCH (08:00)
[2022-11-16] MEDS: FLUDROCORTISONE ACETATE 0.1 MG TAB PO SCH (09:59)
[2022-11-16] MEDS: POTASSIUM CHL 20 Meq TABLET PO SCH ×3 (09:59→22:30)
[2022-11-16] MEDS: FLUCONAZOLE 100 MG TAB PO SCH (09:59)
[2022-11-16] MEDS: MAGNESIUM OXIDE 400 MG TAB PO SCH ×2 (09:59→22:29)
[2022-11-16] MEDS ORDERED: MAGNESIUM SULFATE 1GM/100ML 100 ML IV ONE (11:45)
[2022-11-16] MEDS ORDERED: GADOTERATE MEG 10 MMOL/20ml INJ (0.5MMOL/ml) IV ONE (12:29)
[2022-11-16] MEDS: FERROUS SULFATE 325mg EC TAB PO SCH (17:42)
[2022-11-16] MEDS: MELATONIN 5 MG TAB PO SCH (22:29)
[2022-11-17] MEDS: SODIUM CHLORIDE 0.9% 1,000 ML IV SCH ×3 (00:15→15:09)
[2022-11-17] MEDS: ACETAMINOPHEN 325 MG TAB PO PRN (03:37)
[2022-11-17 05:00] VITALS: BP 116/68; PULSE 77; RESP 17; TEMP 98.5; O2SAT 98
[2022-11-17] MEDS: ACCU-CHEK COMFORT CURVE STRIP VI SCH ×2 (06:00→11:56)
[2022-11-17] MEDS: MIDODRINE HCL 10 MG TAB PO SCH ×2 (06:00→11:57)
[2022-11-17] MEDS: InsuLIN REG 1unit/0.01ml Soln (100units/ml) SC SCH ×2 (06:03→11:30)
[2022-11-17] MEDS: INSULIN LANTUS (GLARGINE) 1 /0.01ml (100units/ml) SC SCH (06:07)
[2022-11-17 08:00] VITALS: BP 154/81; PULSE 82; RESP 17; TEMP 98.7; O2SAT 97
[2022-11-17 09:00] VITALS: BP 154/81; PULSE 82; RESP 17; TEMP 98.7; O2SAT 97
[2022-11-17 09:17] LABS: Anion Gap 6.2 (5-15); Carbon Dioxide 26.8 mmol/L (20-30); Chloride 107 mmol/L (98-107); Potassium 4.3 mmol/L (3.5-5.1); Sodium 140 mmol/L (136-145)
[2022-11-17 09:18] LABS: Calcium 8.6 mg/dL (8.5-10.1)
[2022-11-17 09:23] LABS: BUN/Creatinine Ratio 26.8 (10.0-20.0); Blood Urea Nitrogen 19 mg/dL (9-23); Glucose 115 mg/dL (74-106); Magnesium 1.8 mg/dL (1.6-2.6)
[2022-11-17] MEDS: POTASSIUM CHL 20 Meq TABLET PO SCH (09:46)
[2022-11-17] MEDS: FERROUS SULFATE 325mg EC TAB PO SCH (09:46)
[2022-11-17] MEDS: Glucerna Carbsteady SHAKE Vanilla 8oz PO SCH ×2 (09:46→11:57)
[2022-11-17] MEDS: FLUCONAZOLE 100 MG TAB PO SCH (09:46)
[2022-11-17] MEDS: FLUDROCORTISONE ACETATE 0.1 MG TAB PO SCH (09:46)
[2022-11-17] MEDS: MAGNESIUM OXIDE 400 MG TAB PO SCH (09:46)
[2022-11-17 13:00] VITALS: BP 133/77; PULSE 81; RESP 17; TEMP 98.3; O2SAT 100
[2022-11-17] MEDS ORDERED: MELA5TAB16 PO (13:31)
[2022-11-17] MEDS ORDERED: FLU01T PO (13:31)
[2022-11-17] MEDS ORDERED: FER325T PO (13:31)
[2022-11-17] MEDS ORDERED: MID10T PO (13:31)
[2022-11-17] MEDS ORDERED: MAGN400T40 PO (13:32)
== END 2022-11-17 16:58 | disposition home or self-care (01) | DRG 720 ==
LOC: ER 18:30 → TELE 21:07 → TELE-WESTW 11-01 23:06 → WEST WING 11-09 06:35
PROVIDERS: ADMIT Internal Medicine Geriatric Medicine; ATTEND Student in an Organized Health Care Education/Training Program
DX: A41.9 Sepsis, unspecified organism (principal); N17.0 Acute kidney failure with tubular necrosis; K75.0 Abscess of liver; E44.0 Moderate protein-calorie malnutrition; E11.21 Type 2 diabetes mellitus with diabetic nephropathy; E27.40 Unspecified adrenocortical insufficiency; E11.43 Type 2 diabetes mellitus with diabetic autonomic (poly)neuropathy; D50.9 Iron deficiency anemia, unspecified; E11.22 Type 2 diabetes mellitus with diabetic chronic kidney disease; E87.6 Hypokalemia; E66.01 Morbid (severe) obesity due to excess calories; E78.5 Hyperlipidemia, unspecified; I12.9 Hypertensive chronic kidney disease with stage 1 through stage 4 chronic kidney disease, or unspecified chronic kidney disease; R79.89 Other specified abnormal findings of blood chemistry; E86.0 Dehydration; K27.9 Peptic ulcer, site unspecified, unspecified as acute or chronic, without hemorrhage or perforation; Z20.822 Contact with and (suspected) exposure to COVID-19; E83.42 Hypomagnesemia; R19.7 Diarrhea, unspecified; N39.0 Urinary tract infection, site not specified; I95.1 Orthostatic hypotension; N18.32 Chronic kidney disease, stage 3b; Z68.24 Body mass index [BMI] 24.0-24.9, adult; Z79.4 Long term (current) use of insulin; Z83.3 Family history of diabetes mellitus; Z87.442 Personal history of urinary calculi; Z90.49 Acquired absence of other specified parts of digestive tract; Z98.891 History of uterine scar from previous surgery
CPT/HCPCS: 36415; 70553; 71045; 74176; 74177; 78226; 78582; 80048; 80053; 80061; 81001; 82024; 82533; 82607; 82728; 82962; 83001; 83002; 83540; 83550; 83605; 83735; 84132; 84439; 84443; 84480; 84481; 85025; 85379; 86850; 86900; 86901; 87040; 87081; 87086; 87088; 87426; 87493; 87804; 93005; 93886; 93970; 97110; 97116; 97163; 97530; 99291; G0378; J0696; J1756; J1815; J1956; J2405; J3490; P9047